=== PATIENT | male | born 1985 | race Caucasian/White ===

== ENCOUNTER 2018-04-26 23:11 | Inpatient (IN) | payer MEDICAID ==
[~2018-04-26] VITALS: Ht 177.8 cm; Wt 93.6 kg
[~2018-04-26 23:11] MED LIST: CIPR500T3 PO; FOLI-17 PO; FURO40TA6 PO; GABA-826 PO; LACT20SO13 PO; METR500T PO; MULT-108 PO; MULT-750 PO; OMEP20TA62 PO; RIFA550T4 PO; SPIR100T PO; THIA100T10 PO; THIA100T6 PO
[2018-04-26] MEDS ORDERED: SODIUM CHLORIDE 0.9% 1,000ML IVBOLUS ONE (23:30)
[2018-04-26] MEDS ORDERED: LORazepam 2 MG/ML, 1ML IVPush PRN (23:30)
[2018-04-26] MEDS ORDERED: PROMETHAZINE 25 MG/ML, 1ML IM ONE (23:30)
[2018-04-26] MEDS ORDERED: MAGNESIUM SULFATE 1 GM, THIAMINE 100 MG, FOLIC ACID 1 MG, MVI ADULT 10 ML in SODIUM CHL... IV ONE (23:30)
[2018-04-26] MEDS ORDERED: MAALOX/HYOSCYAMINE/LIDOCAINE 45 ML BTL PO ONE (23:30)
[2018-04-26] MEDS ORDERED: FAMOTIDINE 20 MG/2 ML IVPush ONE (23:30)
[2018-04-26] MEDS ORDERED: SODIUM CHLORIDE FLUSH 10ML SYR IVF ONE (23:30)
[2018-04-26 23:46] LABS: BASOPHILS # (AUTO) 0.03 x10^3/uL (0-0.1); BASOPHILS % (AUTO) 0 % (0-1); EOSINOPHILS # (AUTO) 0.01 x10^3/uL (0-0.4); EOSINOPHILS % (AUTO) 0 % (1-7); LYMPHOCYTES # (AUTO) 1.17 x10^3/uL (1-3.4); LYMPHOCYTES % (AUTO) 15 % (22-44); MD NO; MEAN CORPUSCULAR HEMOGLOBIN 32.7 pg (27.5-34.5); MEAN CORPUSCULAR HGB CONC 34.4 g/dL (33.2-36.2); MEAN PLATELET VOLUME 8.9 fL (7.4-10.4); MONOCYTES # (AUTO) 0.43 x10^3/uL (0.2-0.8); MONOCYTES % (AUTO) 5 % (2-9); NEUTROPHILS # (AUTO) 6.36 x10^3/uL (1.8-6.8); NEUTROPHILS % (AUTO) 80 % (42-75); PLATELET COUNT 118 x10^3/uL (130-400); RED CELL DISTRIBUTION WIDTH 13.3 % (9.4-14.8)
[2018-04-26] MEDS ORDERED: PROMETHAZINE 25 MG/ML, 1ML ONE (23:48)
[2018-04-26] MEDS ORDERED: MAALOX/HYOSCYAMINE/LIDOCAINE 45 ML BTL ONE (23:48)
[2018-04-26] MEDS ORDERED: FAMOTIDINE 20 MG/2 ML ONE (23:49)
[2018-04-26] MEDS ORDERED: LORazepam 2 MG/ML, 1ML ONE (23:49)
[2018-04-26 23:58] LABS: ALANINE AMINOTRANSFERASE 60 U/L (12-78); ALBUMIN 4.2 g/dL (3.4-5.0); ANION GAP 17 mmol/L (5-15); CHLORIDE 100 mmol/L (98-107); CREATININE 0.98 mg/dL (0.7-1.3)
[2018-04-27 00:01] LABS: ALKALINE PHOSPHATASE 125 U/L (45-117); BILIRUBIN,TOTAL 1.5 mg/dL (0.2-1.0); TOTAL PROTEIN 8.2 g/dL (6.4-8.2)
[2018-04-27] MEDS ORDERED: NS + 40MEQ KCL 1,000 ML IV ONE (00:21)
[2018-04-27] MEDS ORDERED: NS + 40MEQ KCL 1,000 ML IV SCH (00:30)
[2018-04-27] MEDS ORDERED: ACETAMINOPHEN 325 MG TABLET PO PRN (02:30)
[2018-04-27] MEDS ORDERED: PROMETHAZINE 12.5 MG SUPP PR PRN (02:30)
[2018-04-27] MEDS ORDERED: CHLORDIAZEPOXIDE 10 MG CAPSULE PO PRN (02:30)
[2018-04-27] MEDS ORDERED: LORazepam 2 MG/ML, 1ML IV PRN ×3 (02:30→12:30)
[2018-04-27] MEDS ORDERED: CHLORDIAZEPOXIDE 25 MG CAPSULE PO PRN ×3 (02:30)
[2018-04-27 02:32] VITALS: BP 142/93
[2018-04-27] MEDS: ONDANSETRON ODT 4 MG PO PRN (03:08)
[2018-04-27] MEDS: POTASSIUM CHLORIDE 20 MEQ TAB.ER.PRT PO SCH ×2 (03:32→08:41)
[2018-04-27] MEDS: POTASSIUM CHLORIDE 20 MEQ, MAGNESIUM SULFATE 2 GM, THIAMINE 100 MG, MVI ADULT 10 ML, FO... IV SCH ×3 (04:01→19:17)
[2018-04-27] MEDS: PROMETHAZINE 25MG TABLET PO PRN ×2 (05:05→10:30)
[2018-04-27 06:06] LABS: ANION GAP 7 mmol/L (5-15); CALCIUM 7.6 mg/dL (8.5-10.1); CHLORIDE 106 mmol/L (98-107); CREATININE 0.75 mg/dL (0.7-1.3)
[2018-04-27 06:07] LABS: ALANINE AMINOTRANSFERASE 54 U/L (12-78); ALBUMIN 3.4 g/dL (3.4-5.0)
[2018-04-27 06:09] LABS: ALKALINE PHOSPHATASE 104 U/L (45-117); BILIRUBIN,TOTAL 1.2 mg/dL (0.2-1.0); TOTAL PROTEIN 6.6 g/dL (6.4-8.2)
[2018-04-27 06:36] LABS: MEAN CORPUSCULAR VOLUME 94.3 fL (81-97); RED BLOOD COUNT 4.87 x10^6/uL (4.38-5.82); RED CELL DISTRIBUTION WIDTH 13.4 % (9.4-14.8)
[2018-04-27 06:37] LABS: BASOPHILS # (AUTO) 0.06 x10^3/uL (0-0.1); BASOPHILS % (AUTO) 1 % (0-1); EOSINOPHILS # (AUTO) 0.01 x10^3/uL (0-0.4); EOSINOPHILS % (AUTO) 0 % (1-7); LYMPHOCYTES # (AUTO) 1.21 x10^3/uL (1-3.4); LYMPHOCYTES % (AUTO) 21 % (22-44); MD MORPH REVIEW ONLY; MEAN PLATELET VOLUME 8.7 fL (7.4-10.4); MONOCYTES # (AUTO) 0.37 x10^3/uL (0.2-0.8); MONOCYTES % (AUTO) 7 % (2-9); NEUTROPHILS # (AUTO) 3.99 x10^3/uL (1.8-6.8); NEUTROPHILS % (AUTO) 71 % (42-75); PLATELET COUNT 83 x10^3/uL (130-400)
[2018-04-27 06:38] LABS: <PLATELET ESTIMATE> DECREASED; <PLT MORPHOLOGY> NORMAL PLT MORPH; <RBC MORPHOLOGY> NORMAL
[2018-04-27 08:01] VITALS: BP 146/89
[2018-04-27] MEDS: ENOXAPARIN 40 MG/0.4 ML SQ SCH (08:41)
[2018-04-27] MEDS: OMEPRAZOLE 20 MG CAPSULE.DR PO SCH (08:41)
[2018-04-27 12:29] VITALS: BP 139/84
[2018-04-27] MEDS: CHLORDIAZEPOXIDE 10 MG CAPSULE PO SCH ×3 (12:30→20:33)
[2018-04-27] MEDS ORDERED: CHLORDIAZEPOXIDE 10 MG CAPSULE PO SCH (12:30)
[2018-04-27] MEDS ORDERED: LORazepam 1MG TABLET PO PRN ×3 (12:30)
[2018-04-27] MEDS: FAMOTIDINE 20 MG/2 ML IVPush SCH (20:33)
[2018-04-27 20:39] VITALS: BP 128/88
[2018-04-27] MEDS: D5%-0.9% NACL 1,000 ML IV SCH (22:31)
[2018-04-27 23:06] VITALS: BP 153/93
[2018-04-28 01:57] VITALS: BP 117/81
[2018-04-28] MEDS: D5%-0.9% NACL 1,000 ML IV SCH (05:09)
[2018-04-28 05:17] LABS: ALBUMIN 3.1 g/dL (3.4-5.0); ANION GAP 7 mmol/L (5-15); CALCIUM 7.9 mg/dL (8.5-10.1); CHLORIDE 111 mmol/L (98-107)
[2018-04-28 05:22] LABS: ALANINE AMINOTRANSFERASE 50 U/L (12-78); ALKALINE PHOSPHATASE 96 U/L (45-117); BILIRUBIN,TOTAL 2.8 mg/dL (0.2-1.0); CREATININE 0.72 mg/dL (0.7-1.3); TOTAL PROTEIN 6.3 g/dL (6.4-8.2)
[2018-04-28] MEDS: PROMETHAZINE 25MG TABLET PO PRN (06:09)
[2018-04-28 08:00] VITALS: BP 117/82
[2018-04-28] MEDS: ENOXAPARIN 40 MG/0.4 ML SQ SCH (09:59)
[2018-04-28] MEDS: FAMOTIDINE 20 MG/2 ML IVPush SCH (09:59)
[2018-04-28] MEDS: OMEPRAZOLE 20 MG CAPSULE.DR PO SCH (09:59)
[2018-04-28] MEDS ORDERED: CALCIUM CARBONATE 500 MG TAB.CHEW PO PRN (11:30)
[2018-04-28] MEDS ORDERED: MAALOX/HYOSCYAMINE/LIDOCAINE 45 ML BTL PO PRN (11:30)
[2018-04-28] MEDS ORDERED: POTASSIUM CHLORIDE 20 MEQ, MAGNESIUM SULFATE 2 GM, THIAMINE 100 MG, MVI ADULT 10 ML, FO... IV SCH (14:00)
[2018-04-28 14:03] VITALS: BP 124/86
[2018-04-28] MEDS: ONDANSETRON ODT 4 MG PO PRN ×2 (14:45→20:08)
[2018-04-28 20:17] VITALS: BP 124/86
[2018-04-28] MEDS ORDERED: OMEPRAZOLE 20 MG CAPSULE.DR PO SCH (21:00)
[2018-04-28] MEDS ORDERED: SUCRALFATE 1 GM/10 ML UDC PO SCH (21:00)
[2018-04-29 01:23] VITALS: BP 121/82
[2018-04-29 05:30] LABS: ALBUMIN 3.3 g/dL (3.4-5.0); ANION GAP 7 mmol/L (5-15); CALCIUM 8.3 mg/dL (8.5-10.1); CHLORIDE 108 mmol/L (98-107)
[2018-04-29 05:35] LABS: ALANINE AMINOTRANSFERASE 60 U/L (12-78); ALKALINE PHOSPHATASE 117 U/L (45-117); BILIRUBIN,TOTAL 1.4 mg/dL (0.2-1.0); CREATININE 0.85 mg/dL (0.7-1.3); TOTAL PROTEIN 7.1 g/dL (6.4-8.2)
[2018-04-29 06:57] VITALS: BP 124/85
== END 2018-04-29 07:30 | disposition left against medical advice (07) | DRG 894 ==
LOC: ED 23:38 → EDIP 04-27 00:26 → 4EST 04-27 01:18
PROVIDERS: ADMIT Hospitalist; ATTEND Hospitalist
PROC: BD11YZZ Fluoroscopy of Esophagus using Other Contrast (ICD-10-PCS; principal; 2018-04-28)
DX: F10.239 Alcohol dependence with withdrawal, unspecified (principal); D69.6 Thrombocytopenia, unspecified; E44.1 Mild protein-calorie malnutrition; K21.0 Gastro-esophageal reflux disease with esophagitis; E86.9 Volume depletion, unspecified; E87.6 Hypokalemia; Z71.41 Alcohol abuse counseling and surveillance of alcoholic; Z53.21 Procedure and treatment not carried out due to patient leaving prior to being seen by health care provider; F17.210 Nicotine dependence, cigarettes, uncomplicated; Z81.1 Family history of alcohol abuse and dependence; Z68.29 Body mass index [BMI] 29.0-29.9, adult
CPT/HCPCS: 36415; 74220; 80053; 80307; 83690; 83735; 84100; 85025; 96365; 96372; 96375; J1650; J2550; J3411; J3475; J3480; J7042; Q0162; Q0169; J2060; J7030; S0028

== ENCOUNTER 2018-08-22 22:05 | Emergency (ER) | payer MEDICAID ==
[~2018-08-22] VITALS: Ht 177.8 cm; Wt 87.4 kg
[~2018-08-22 22:05] MED LIST changes: -THIA100T6 PO; +THIA100T67 PO
[2018-08-22] MEDS ORDERED: SODIUM CHLORIDE 0.9% 1,000 ML IV ONE (22:21)
[2018-08-22] MEDS ORDERED: ONDANSETRON ODT 4 MG PO ONE (22:30)
[2018-08-22] MEDS ORDERED: SODIUM CHLORIDE 0.9% 1,000ML IVBOLUS ONE (22:30)
[2018-08-22] MEDS ORDERED: LORazepam 2 MG/ML, 1ML ONE ×2 (22:31→22:56)
[2018-08-22] MEDS ORDERED: ONDANSETRON ODT 4 MG ONE (22:31)
[2018-08-22] MEDS: LORazepam 2 MG/ML, 1ML IVPush PRN ×2 (22:35→22:58)
[2018-08-22 22:39] LABS: BASOPHILS # (AUTO) 0.08 x10^3/uL (0-0.1); BASOPHILS % (AUTO) 1 % (0-1); EOSINOPHILS # (AUTO) 0.03 x10^3/uL (0-0.4); EOSINOPHILS % (AUTO) 0 % (1-7); LYMPHOCYTES # (AUTO) 1.67 x10^3/uL (1-3.4); LYMPHOCYTES % (AUTO) 15 % (22-44); MD NO; MEAN CORPUSCULAR HEMOGLOBIN 34.6 pg (27.5-34.5); MEAN CORPUSCULAR HGB CONC 34.7 g/dL (33.2-36.2); MEAN CORPUSCULAR VOLUME 99.7 fL (81-97); MEAN PLATELET VOLUME 8.9 fL (7.4-10.4); MONOCYTES # (AUTO) 0.38 x10^3/uL (0.2-0.8); MONOCYTES % (AUTO) 3 % (2-9); NEUTROPHILS # (AUTO) 8.84 x10^3/uL (1.8-6.8); NEUTROPHILS % (AUTO) 80 % (42-75); PLATELET COUNT 136 x10^3/uL (130-400); RED BLOOD COUNT 5.34 x10^6/uL (4.38-5.82); RED CELL DISTRIBUTION WIDTH 13.6 % (9.4-14.8)
[2018-08-22 22:47] LABS: ALANINE AMINOTRANSFERASE 48 U/L (12-78); ALBUMIN 4.8 g/dL (3.4-5.0); ANION GAP 17 mmol/L (5-15); CALCIUM 9.2 mg/dL (8.5-10.1); CHLORIDE 100 mmol/L (98-107)
[2018-08-22 22:50] LABS: ALKALINE PHOSPHATASE 117 U/L (45-117); BILIRUBIN,TOTAL 1.9 mg/dL (0.2-1.0); TOTAL PROTEIN 9.2 g/dL (6.4-8.2)
[2018-08-22] MEDS ORDERED: MAALOX/HYOSCYAMINE/LIDOCAINE 45 ML BTL PO ONE (23:30)
[2018-08-23 00:12] VITALS: BP 117/73
== END 2018-08-23 00:38 | disposition home or self-care (01) ==
LOC: ED 23:59
DX: F10.229 Alcohol dependence with intoxication, unspecified (principal); F41.9 Anxiety disorder, unspecified; R05 Cough
CPT/HCPCS: 36415; 80053; 80307; 83690; 85025; 93005; 96374; 99285; J2060; J7030; Q0162

== ENCOUNTER 2019-02-18 15:35 | Emergency (ER) | payer SELFPAY | END 2019-02-18 17:13 | disposition left against medical advice (07) | LOC: ED 16:00 | DX: F10.129 Alcohol abuse with intoxication, unspecified (principal); Z53.21 Procedure and treatment not carried out due to patient leaving prior to being seen by health care provider ==